=== PATIENT | male | born 1955 | race Hispanic/Latino ===

== ENCOUNTER → 2017-12-09 | Outpatient (CLI) | payer MEDICARE ==
[~2017-12-09] MED LIST: ASPI81TA40 PO; ATOR10 PO; AZIT500T4 PO; CLOP75TA32 PO; FAMO20TA8 PO; FENO150C4 PO; FERR500P12 MC; LEVE750T51 PO; LISI10TA7 PO; LORA2ORA5 PO; MECL-111 PO; PHEN100C9 PO; SERT100T12 PO
[2017-12-09 09:01] LABS: ALBUMIN 4.2 g/dL (3.5-5.0); BILIRUBIN,TOTAL 0.2 mg/dL (0.2-1.0); CREATININE 0.8 mg/dL (0.5-1.5); POTASSIUM 4.1 mmol/L (3.5-5.1); TOTAL PROTEIN, SERUM 7.6 g/dL (6.0-8.3)
== END | disposition home or self-care (01) ==
LOC: LAB 08:21
PROVIDERS: ATTEND Internal Medicine
DX: I10 Essential (primary) hypertension (principal); E78.00 Pure hypercholesterolemia, unspecified; E78.2 Mixed hyperlipidemia
CPT/HCPCS: 36415; 80053; 80061

== ENCOUNTER 2019-03-13 01:35 | Emergency (ER) | payer OTHER, MEDICARE ==
[~2019-03-13 01:35] MED LIST changes: -LEVE750T51 PO; +LEVE750T66 PO
[2019-03-13] MEDS ORDERED: ONDANSETRON HCL 4 MG/2 ML VIAL ONE (03:11)
[2019-03-13] MEDS ORDERED: SODIUM CHLORIDE 0.9% 1000ML 1,000 ML IV ONE (03:12)
[2019-03-13] MEDS ORDERED: KETOROLAC TROMETHAMINE 30MG/ML ONE (03:12)
[2019-03-13 03:22] LABS: BASOPHILS % (AUTO) 0.7 % (0.0-5.0); EOSINOPHILS % (AUTO) 2.5 % (0.0-8.0); HEMATOCRIT 37.5 % (42-54); LYMPHOCYTES % (AUTO) 48.6 % (21.0-51.0); MEAN CORPUSCULAR HGB CONC 34.8 g/dL (32.0-36.0); MEAN CORPUSCULAR VOLUME 89.1 fL (79-99); MONOCYTES % (AUTO) 11.4 % (3.0-13.0); NEUTROPHILS % (AUTO) 36.8 % (40.0-77.0); NUCLEATED RED BLOOD CELLS 0.1 % (0.0-0.19); PLATELET COUNT (AUTO) 240 K/uL (130-400); RED BLOOD CELL COUNT(AUTO) 4.21 MIL/uL (4.50-6.20); RED CELL DISTRIBUTION WIDTH 13.2 % (11.0-15.5); WHITE BLOOD COUNT (AUTO) 4.4 K/uL (4.8-10.8)
[2019-03-13 03:28] LABS: CREATININE 0.9 mg/dL (0.5-1.5); POTASSIUM 3.9 mmol/L (3.5-5.1)
[2019-03-13 03:32] LABS: ALBUMIN 4.3 g/dL (3.5-5.0); BILIRUBIN,TOTAL 0.2 mg/dL (0.2-1.0); TOTAL PROTEIN, SERUM 7.9 g/dL (6.0-8.3)
[2019-03-13] MEDS ORDERED: FLUCONAZOLE 100 MG TAB ONE (03:54)
== END 2019-03-13 04:23 | disposition home or self-care (01) ==
LOC: EDH 01:35
DX: B37.89 Other sites of candidiasis (principal); R10.2 Pelvic and perineal pain; I10 Essential (primary) hypertension; Z86.73 Personal history of transient ischemic attack (TIA), and cerebral infarction without residual deficits; Z87.891 Personal history of nicotine dependence
CPT/HCPCS: 36415; 80053; 85025; 87040; 96374; 96375; 99284; J1885; J2405; J7030